=== PATIENT | male | born 1995 | race Caucasian/White ===

== ENCOUNTER 2018-09-01 10:04 | Emergency (ER) | payer BC, OTHER ==
--- NOTE | 2018-09-01 10:24 | UC ---
Back Pain HPI - HPI Summary HPI Summary: Patient is a 23-year-old male who states he was doing outside work today. 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 Patient was unable to stand up straight and Beni he drove him here. Patient did not take anything for pain. No paresthesias of his legs. No weakness of his legs. No change or incontinence of his bowel or bladder. No analgesia taken prior to arrival. Patient reports a remote L4 stress fracture from baseball. No nausea vomiting. No chest pain or trouble breathing. No weakness of his extremities but states removed it's leg and made his back hurt more. Patient was driven here by somebody at work. Patient's medications reviewed this visit. - History of Current Complaint Stated Complaint: BACK INJURY Hx Obtained From: Patient Onset/Duration: Sudden Onset Timing: Constant Severity Initially: Severe Severity Currently: Severe Pain Intensity: 8 Pain Scale Used: 0-10 Numeric Back Pain: Is Discrete @ - Left low back - Allergies/Home Medications Allergies/Adverse Reactions: Allergies Allergy/AdvReac Type Severity Reaction Status Date / Time cefaclor Allergy Rash Verified 09/01/18 10:28 Home Medications: Home Medications Montelukast Sodium TAB* [Singulair 10 MG TAB*] 10 mg PO DAILY 09/01/18 [History Confirmed 09/01/18] Olopatadine 0.1% OPHTH (NF) [Patanol 0.1% OPHTH (NF)] 1 drp BOTH EYES DAILY [History Confirmed 09/01/18] PARoxetine HCL TAB* [Paxil TAB*] 5 mg PO DAILY 09/01/18 [History Confirmed 09/01] PMH/Surg Hx/FS Hx/Imm Hx - Additional Past Medical History Additional PMH: L4 stress fracture Previously Healthy: Yes - Surgical History Surgical History: None - Family History Known Family History: Positive: Non-Contributory Review of Systems All Other Systems Reviewed And Are Negative: Yes Constitutional: Positive: Negative Skin: Positive: Negative Motor: Positive: Other - lumbar back pain Neurovascular: Positive: Negative Neurological: Positive: Negative Psychological: Positive: Negative Is Patient Immunocompromised?: No Physical Exam - Summary Physical Exam Summary: Vital Signs Reviewed: Yes A+Ox3, mild discomfort, pt ambulatory without assistance Eyes: Conjunctiva Clear ENT: Hearing grossly normal neck: supple Respiratory: Positive: No respiratory distress, No accessory muscle use Cardiovascular: skin color reflect adequate perfusion 2+ PT Musculoskeletal Exam: ambulatory without assistance able to sit/stand without assistance + full AROM upper ext without difficulty + SLE with "pull" left paraspinal lumbar + flex/ext knee mild pain left low back with flexion left knee no spinous process pain c/t/l/s no crepitus + point paraspinal tenderness left low back with direct palpation L2-L5 Neurological: Positive: Alert, gross sensation b/l LE Psychological: Positive: Normal Response To proivder Skin: Positive: no rash, no ecchymosis Triage Information Reviewed: Yes Diagnostics - Radiology No standard instances Radiology Interpretation Completed By: Radiologist - reviewPatient Name: BALBIR PAREKH Medical Record#: [id number] Ordering Physician: Zaira Lewis MD Acct.#: [id number] : 1995 Age: 23 Sex: M Location: [facility] Exam Date: 09/01/18 1038 ADM Status: REG ER Order Information: SP LUMBARSACRAL 4+ VWS Accession Number: [id number] CPT: 58157 HISTORY: pain left paraspinal lumbar s/p lifting injury COMPARISONS: February 03, 2008, MRI of the lumbar spine dated September 07, 2007 VIEWS: 5 , Frontal, lateral, coned-down lateral sacral, and bilateral oblique views of the lumbar spine. FINDINGS: ALIGNMENT : The alignment is normal. VERTEBRAL BODIES: The vertebral body heights are normal. The interpedicular distances are normal. There are no appreciable pars defects. JOINTS: There is mild facet osteoarthritis at L4-L5 and L5-S1. INTERVERTEBRAL DISCS: There is mild diffuse loss of intervertebral disc height. SOFT TISSUE: Unremarkable. OTHER: The pelvis is unremarkable. The lung bases are clear. IMPRESSION: MILD DEGENERATIVE DISC DISEASE AND OSTEOARTHRITIS. _ <Electronically signed by Martin Robb MD in OV> 09/01/18 1111 Dictated By: Martin Robb MD Dictated Date/Time: 09/01/18 1111 Transcribed Date/Time: 09/01/18 1109 Copy to: CC:Zaira Lewis MD; Junaid Gay MD Imaging - [facility] Imaging - [facility] Imaging - [facility] [address] [address] [place] [address] [place] [address] ph ([phone]) ph ([phone]) ph ([phone]) This report is only to be considered final once signed by the Provider(s) as displayed in the "<Electronically Signed by > " field (s). Absence of a signature indicates the report is in a draft status and still needs to be finalized. In the event this document was created by someone other than the signing Provider, the individual initiating the document will be listed in the "Entered by:" or "Dictated by:" martin. Re-Evaluation - Re-Evaluation First Eval Change: Improved - Pt states slightly improved following toradol continue to decline flexeril Pt boss here to drive from pt decline opiate for nighttime will f/u with PCP or Dr Wells - advised pt PCP may not see WC WC forms complete pt states understanding Back Pain Course/Dx - Course Course Of Treatment: Patient presents to urgent care reporting sudden back pain left worse than right after lifting a piece of granite at work. Patient states he tried to stand up afterwards and felt like back "seized" patient did not take anything for pain. Patient with a remote back injury but did not require surgery. Patient without any extremity weakness or paresthesias. No analgesic treatment taken prior to arrival. On exam vital signs are stable. Patient with point tenderness left paraspinal region lumber. Patient does have range of motion of his lower legs with some pulling sensation in his back. No reported paresthesias. No weakness on exam. We'll give some IM Toradol as well as check x-rays. 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 I expressed concern ramus. Will not give any sedating or my Motrin medications here as patient plans to drive despite cautions. We'll reassess after Toradol and imaging. Patient comfortable in agreement with plan. Anticipate discharge with Motrin/Advil, heat, stretch, follow up with Dr. Wells. Elevtd BP related to UC condition Zaira Lewis | Reference #: [id number] - Differential Dx/Diagnosis Provider Diagnosis: Back pain without radiation, Lumbar paraspinal muscle spasm Discharge - Sign-Out/Discharge Documenting (check all that apply): Patient Departure All imaging exams completed and their final reports reviewed: Yes - Discharge Plan Condition: Stable Disposition: HOME Prescriptions: Cyclobenzaprine TAB* [Flexeril 10 MG TAB*] 5 mg PO Q8HR PRN #10 tab PRN Reason: back spasm Patient Education Materials: Low Back Strain (ED), Lower Back Exercises (ED) Forms: *Work Release Referrals: Christos Wells MD [Medical Doctor] - (Call today for a follow-up appointment next week) Junaid Gay MD [Primary Care Provider] - Additional Instructions: - Okay to alternate ibuprofen (Advil, Motrin) 600mg and Tylenol product ( Tylenol or [place]) every 3hours as needed for pain. Take with food. Do NOT take for more than 4-5 days. -Take Flexeril - muscle relaxer as prescribed- NOT drive, operate machinery or drink alcohol while taking this medication as it may cause drowsiness -Apply moist heat to your back for 20 minutes at a time, 4-5 times a day. Once your muscles are warm, slow gentle stretching exercises are important - If you have increased pain, weakness of your legs, difficulty controlling your bowel or bladder or any other concern it is recommended you go to the emergency department for further evaluation and treatment -Contact or provider or the web specialist (Dr. Wells) today to schedule a follow-up appointment next week - Billing Disposition and Condition Condition: STABLE Disposition: Home
[2018-09-01 10:28] VITALS: BP 143/73
[2018-09-01] MEDS ORDERED: Ketorolac INJ* 60 MG/2 ML VIAL IM ONE (10:38)
== END 2018-09-01 11:48 | disposition home or self-care (01) ==
LOC: UCEAST 10:04
DX: M54.5 Low back pain (principal); M62.830 Muscle spasm of back
CPT/HCPCS: 72110; 96372; 99212; G0463; J1885